=== PATIENT | male | born 1970 | race Caucasian/White ===

== ENCOUNTER → 2018-07-20 12:26 | Outpatient (CLI) | payer MEDICAID ==
[2015-09-10 06:56] VITALS: BMI 36.0
[~2018-07-20 12:26] MED LIST: HYDROCODONE-APA1 TAB PO; HYDROXYZINE HCL50 MG PO; LITHIUM CARBON300 MG PO; ZANAFLEX4 MG PO
== END | disposition home or self-care (01) ==
LOC: D.MRI 06-27 13:30 → D.CT 06-27 14:00 → D.MRI 06-30 13:00
DX: M25.562 Pain in left knee (principal); R91.1 Solitary pulmonary nodule

== ENCOUNTER → 2019-05-11 10:45 | Outpatient (CLI) | payer MEDICAID ==
[2015-09-10 06:56] VITALS: BMI 36.0
== END | disposition home or self-care (01) ==
LOC: D.HCCARDIO 05-03 12:00
PROVIDERS: ATTEND Internal Medicine Cardiovascular Disease
DX: I20.9 Angina pectoris, unspecified (principal)